=== PATIENT | female | born 1985 | race Caucasian/White ===

== ENCOUNTER → 2017-08-08 | Outpatient (CLI) | payer MEDICAID ==
--- NOTE | 2017-08-08 17:00 | US ---
EXAMINATION TYPE: US thyroid st tissue head/neck DATE OF EXAM: 08/08/2017 COMPARISON: NONE CLINICAL HISTORY: E05.90 hyperthyroidism. hair loss, abnormal labs, fast heart rate GLAND SIZE: Right Lobe: 6.0 x 2.7 x 2.5 cm Overall Parenchyma: heterogenous Left Lobe: 5.3 x 1.9 x 2.2 cm Overall Parenchyma: heterogeneous Isthmus Thickness: 0.4 cm NODULES RIGHT: # of nodules measured on right: 0 LEFT: # of nodules measured on left: 0 ISTHMUS: # of nodules measured in the isthmus: 0 Bilateral neck scanned, no evidence of lymphadenopathy. Heterogeneous gland bilaterally with no definite nodule seen IMPRESSION: No suspicious acute changes
== END | disposition home or self-care (01) ==
LOC: RADUSWWP 15:25
PROVIDERS: ATTEND Obstetrics & Gynecology
DX: E05.90 Thyrotoxicosis, unspecified without thyrotoxic crisis or storm (principal)
CPT/HCPCS: 76536

== ENCOUNTER → 2017-08-17 | Outpatient (CLI) | payer MEDICAID ==
[2017-08-17 09:27] LABS: CH 22.8; CHCM 30.9; HCT 39.5 % (34.0-46.0); HDW 2.74; HGB 12.4 gm/dL (11.4-16.0); Hypochromasia Moderate; MCH 23.3 pg (25.0-35.0); MCHC 31.4 g/dL (31.0-37.0); MCV 74.1 fL (80.0-100.0); Mean Platelet Volume 7.5; RBC 5.33 m/uL (3.80-5.40); RDW 13.4 % (11.5-15.5); WBC 6.2 k/uL (3.8-10.6)
[2017-08-17 10:05] LABS: ALT 42 U/L (9-52); AST 18 U/L (14-36); Alkaline Phosphatase 40 U/L (38-126); Anion Gap 8 mmol/L; Blood Urea Nitrogen 13 mg/dL (7-17); Calcium 9.7 mg/dL (8.4-10.2); Carbon Dioxide 25 mmol/L (22-30); Chloride 107 mmol/L (98-107); Glucose 104 mg/dL (74-99); Non-African American GFR(MDRD) >60 (>60 ml/min/1.73 sqM); Potassium 5.3 mmol/L (3.5-5.1); Sodium 140 mmol/L (137-145); Total Bilirubin 1.2 mg/dL (0.2-1.3); Total Protein 6.2 g/dL (6.3-8.2)
[2017-08-27 07:27] LABS: Mis test requested (Blood) Thyrotropin Recp Ab
== END | disposition home or self-care (01) ==
LOC: LABWHC1 08:32
PROVIDERS: ATTEND Internal Medicine
DX: E05.90 Thyrotoxicosis, unspecified without thyrotoxic crisis or storm (principal)
CPT/HCPCS: 36415; 80053; 83519; 84445; 84481; 85027; 86376

== ENCOUNTER → 2017-10-12 | Outpatient (CLI) | payer MEDICAID ==
[2017-10-12 09:24] LABS: HCT 41.2 % (34.0-46.0); HGB 12.6 gm/dL (11.4-16.0); Hypochromasia Marked; MCH 21.9 pg (25.0-35.0); MCHC 30.6 g/dL (31.0-37.0); MCV 71.7 fL (80.0-100.0); Mean Platelet Volume 6.6; Microcytosis Slight; Platelet Count 323 k/uL (150-450); RBC 5.75 m/uL (3.80-5.40); WBC 5.5 k/uL (3.8-10.6)
[2017-10-12 10:08] LABS: ALT 35 U/L (9-52); AST 22 U/L (14-36); Albumin 4.1 g/dL (3.5-5.0); Alkaline Phosphatase 57 U/L (38-126); Anion Gap 11 mmol/L; Blood Urea Nitrogen 13 mg/dL (7-17); Calcium 9.7 mg/dL (8.4-10.2); Carbon Dioxide 27 mmol/L (22-30); Chloride 104 mmol/L (98-107); Glucose 88 mg/dL (74-99); Potassium 4.3 mmol/L (3.5-5.1); Sodium 142 mmol/L (137-145); Total Protein 6.8 g/dL (6.3-8.2)
[2017-10-12 10:22] LABS: T4, Free (Free Thyroxine) 3.19 ng/dL (0.78-2.19)
== END | disposition home or self-care (01) ==
LOC: LABWHC1 08:37
PROVIDERS: ATTEND Internal Medicine
DX: E05.90 Thyrotoxicosis, unspecified without thyrotoxic crisis or storm (principal)
CPT/HCPCS: 36415; 80053; 84439; 84443; 84481; 85027

== ENCOUNTER → 2020-05-20 | Outpatient (CLI) | payer OTHER ==
--- NOTE | 2020-05-20 09:32 | US ---
EXAMINATION TYPE: US abdomen complete DATE OF EXAM: 05/20/2020 COMPARISON: NONE CLINICAL HISTORY: 35-year-old female E05.90 Thyrotoxicosis, K21.9 GERD, N92.0 Excessive. Intermittent GERD and nausea x 2 years, gotten worse recently, occasional abdomen pain TECHNIQUE: Multiple sonographic images of the abdomen are obtained. FINDINGS: EXAM MEASUREMENTS: Liver Length: 19.1 cm Gallbladder Wall: 0.2 cm CBD: 0.3 cm Spleen: 11.4 cm Right Kidney: 10.9 x 4.9 x 4.7 cm Left Kidney: 10.2 x 5.7 x 4.5 cm Pancreas: wnl Liver: Mildly enlarged. Normal homogeneous appearance without focal lesion. Gallbladder: wnl Evidence for sonographic Vazquez's sign: no CBD: visualized portions wnl, limited by overlying bowel gas Spleen: wnl Right Kidney: No hydronephrosis. Left Kidney: No hydronephrosis. Visualized portions wnl, upper and lower pole limited by overlying b owel gas Upper IVC: wnl Abd Aorta: wnl IMPRESSION: 1. Mild hepatomegaly at 19.1 cm. Overall normal homogeneous ultrasound appearance of the parenchyma. 2. No gallstones or biliary ductal dilatation.
--- NOTE | 2020-05-20 09:57 | US ---
EXAMINATION TYPE: US thyroid st tissue head/neck DATE OF EXAM: 05/20/2020 COMPARISON: 08/08/2017 CLINICAL HISTORY: 35-year-old female thyrotoxicosis. History of Graves Disease, enlarged thyroid TECHNIQUE: Multiple sonographic images of the thyroid gland are obtained. FINDINGS: GLAND SIZE: Right Lobe: 6.0 x 2.0 x 2.9 cm Overall Parenchyma: heterogenous Left Lobe: 5.6 x 2.1 x 2.3 cm Overall Parenchyma: heterogeneous Isthmus Thickness: 0.5 cm NODULES RIGHT: # of nodules measured on right: 1 1. 0.8 X 0.5 x 0.7 cm hypoechoic solid nodule at the lower pole with well-defined margins. This nod ule is wider than tall and shows intranodular vascularity. Prior size: no previous LEFT: # of nodules measured on left: 0 ISTHMUS: # of nodules measured in the isthmus: 0 Bilateral neck scanned, no evidence of lymphadenopathy. IMPRESSION: 1. Redemonstrated thyromegaly with heterogeneous glandular parenchyma. Possible goiter or diffuse thy roiditis. 2. An 8mm solid nodule at the right lower pole. Given that this is new, follow-up is recommended.
== END | disposition home or self-care (01) ==
LOC: RADUSWWP 06:59
PROVIDERS: ATTEND Physician Assistant Medical
DX: E01.0 Iodine-deficiency related diffuse (endemic) goiter (principal); R16.0 Hepatomegaly, not elsewhere classified
CPT/HCPCS: 76536; 76700

== ENCOUNTER → 2020-08-20 | Outpatient (CLI) | payer OTHER ==
--- NOTE | 2020-08-20 08:08 | US ---
EXAMINATION TYPE: US thyroid st tissue head/neck DATE OF EXAM: 08/20/2020 COMPARISON: Thyroid ultrasound May 20, 2020 CLINICAL HISTORY: E04.1 THYROID NODULE. Thyroid nodule GLAND SIZE: Right Lobe: 5.6 x 2.3 x 2.5 cm Overall Parenchyma: homogenous Left Lobe: 5.2 x 2.2 x 2.2 cm Overall Parenchyma: homogeneous Isthmus Thickness: .5 cm NODULES RIGHT: # of nodules measured on right: Unable to reproduce nodule seen on previous exam. LEFT: # of nodules measured on left: 0 ISTHMUS: # of nodules measured in the isthmus: 0 Bilateral neck scanned, no evidence of lymphadenopathy. Homogeneous slightly enlarged thyroid gland without discrete nodule identified on current study. IMPRESSION: As above. No greater than 1 cm nodules.
== END | disposition home or self-care (01) ==
LOC: RADUSWWP 07:31
PROVIDERS: ATTEND Family Medicine
DX: E04.2 Nontoxic multinodular goiter (principal)
CPT/HCPCS: 76536

== ENCOUNTER 2020-10-01 09:58 | Day surgery (SDC) | payer OTHER ==
[2020-09-28 13:50] VITALS: BMI 29.2
[~2020-10-01 09:58] MED LIST: LACTATED RINGERS 1,000 ML IV SCH
[2020-10-01 10:25] VITALS: TEMP 97.4
[2020-10-01] MEDS ORDERED: LIDOCAINE 1% (10MG/ML) FOR IV START INTRADERMA ONE (10:43)
[2020-10-01] MEDS ORDERED: PROPOFOL 10 MG/ML 20 ML VIAL IV ONE (10:57)
[2020-10-01] MEDS ORDERED: LIDOCAINE 1% INJ 10MG/ML (20 ML MDV) ONE (10:57)
--- NOTE | 2020-10-01 11:19 | P.PCN ---
Date of Procedure: 10/01/20 Procedure(s) Performed: BRIEF HISTORY: Patient is a 35-year-old, pleasant, female scheduled for an upper endoscopy as a part of evaluation of long-standing history of GERD for the last 2-3 years duration. She tried various PPIs no help. Lately has been taking Tums as needed. She is scheduled for an upper endoscopy were complicated reflux. PROCEDURE PERFORMED: Esophagogastroduodenoscopy with biopsy. PREOPERATIVE DIAGNOSIS: Chronic heartburn symptoms of 2 years duration. IV sedation per anesthesia. PROCEDURE: After informed consent was obtained, the patient was brought into the endoscopy unit. IV sedation was administered by Anesthesia under continuous monitoring. Initially the Olympus GIF-140 video endoscope was inserted into the mouth. Esophagus intubated without any difficulty. It was gradually advanced into the stomach and duodenum and carefully examined. The bulb and the second part of the duodenum appeared normal. The scope at this time was withdrawn to the stomach, adequately insufflated with air, and upon careful examination, mucosa of the antrum, and mild gastritis and biopsies were done from this area. The body, cardia and the fundus appeared normal. The scope was then withdrawn into the esophagus. The GE junction was located at 39 cm from the incisors. The esophagus appeared normal. There were no erosions or ulcerations seen, biopsies were done from the distal esophagus and the patient tolerated the procedure well. IMPRESSION: 1. Mild antral gastritis. 2. And well-appearing esophagus with no evidence of esophagitis or Delgado's esophagus. RECOMMENDATIONS: The findings of this examination were discussed with the patient as well as a family. She was advised to follow with the biopsy results. She will be given a trial of Pepcid 20 mg at bedtime and was briefly educated about antireflux measures..
[2020-10-01 12:06] VITALS: BP 106/70; PULSE 76; RESP 20
== END 2020-10-01 11:52 | disposition home or self-care (01) ==
LOC: ORWHC2ENDO 09:58
PROVIDERS: ATTEND Internal Medicine Gastroenterology
DX: K29.50 Unspecified chronic gastritis without bleeding (principal); K21.9 Gastro-esophageal reflux disease without esophagitis
CPT/HCPCS: 81025; 88305; 43239; J2001; J2704

== ENCOUNTER → 2021-07-29 | Outpatient (CLI) | payer MEDICAID | END | disposition home or self-care (01) | LOC: LABMAIN 09:51 | PROVIDERS: ATTEND Physician Assistant | DX: Z20.822 Contact with and (suspected) exposure to COVID-19 (principal) | CPT/HCPCS: 87635 ==

== ENCOUNTER 2021-07-30 10:21 | Emergency (ER) | payer MEDICAID ==
[2021-07-30] MEDS ORDERED: CASIRIVIMAB/IMDEVIMAB (EUA) 1,200 MG in SODIUM CHLORIDE 0.9% 100 ML IVPB ONE (10:45)
--- NOTE | 2021-07-30 10:56 | ED ---
General Adult HPI - General Chief complaint: Upper Respiratory Infection Stated complaint: Covid+/antibodies Time Seen by Provider: 07/30/21 10:30 Source: patient, RN notes reviewed Mode of arrival: ambulatory - History of Present Illness Initial comments: This a 36-year-old female presents emergency Department with chief complaint of COVID-19. Patient states she symptoms started 2 days ago tested positive yesterday. Patient states she is here for monoclonal antibodies. She went to fevers chills bodies cough congestion. Denies any chest pain shortness of breath no leg pain no leg swelling no GI symptoms. - Related Data Home Medications Medication Instructions Recorded Confirmed Multivitamins, Thera [Multivitamin 1 tab PO DAILY 09/28/20 09/28/20 (formulary)] Allergies Allergy/AdvReac Type Severity Reaction Status Date / Time No Known Allergies Allergy Verified 07/30/21 10:28 Review of Systems ROS Statement: Those systems with pertinent positive or pertinent negative responses have been documented in the HPI. ROS Other: All systems not noted in ROS Statement are negative. Past Medical History Past Medical History: GERD/Reflux, Thyroid Disorder Additional Past Medical History / Comment(s): excessive heartburn, no current Rx for thyroid History of Any Multi-Drug Resistant Organisms: None Reported Past Surgical History: Section, Tonsillectomy Additional Past Surgical History / Comment(s): superficial cranial cyst removed, C/S x 3 Past Anesthesia/Blood Transfusion Reactions: No Reported Reaction Past Psychological History: No Psychological Hx Reported Smoking Status: Never smoker Past Alcohol Use History: None Reported Past Drug Use History: None Reported - Past Family History Father Family Medical History: No Reported History Mother Family Medical History: No Reported History General Exam General appearance: alert, in no apparent distress Head exam: Present: atraumatic, normocephalic, normal inspection Eye exam: Present: normal appearance, PERRL, EOMI. Absent: scleral icterus, conjunctival injection, periorbital swelling ENT exam: Present: normal exam, normal oropharynx, mucous membranes moist Neck exam: Present: normal inspection, full ROM. Absent: tenderness, meningismus, lymphadenopathy Respiratory exam: Present: normal lung sounds bilaterally. Absent: respiratory distress, wheezes, rales, rhonchi, stridor Cardiovascular Exam: Present: regular rate, normal rhythm, normal heart sounds. Absent: systolic murmur, diastolic murmur, rubs, gallop, clicks Course Vital Signs 07/30/21 10:22 Temperature 97.9 F Pulse Rate 79 Respiratory 18 Rate Blood Pressure 108/66 O2 Sat by Pulse 100 Oximetry Medical Decision Making - Medical Decision Making Patient is well-appearing, vitals are stable patient did receive monoclonal he otherwise be discharged in stable condition. Disposition Clinical Impression: COVID-19 Disposition: HOME SELF-CARE Condition: Stable Instructions (If sedation given, give patient instructions): Coronavirus Disease 2019 (COVID-19) Additional Instructions: Please return to the Emergency Department if symptoms worsen or any other concerns. Is patient prescribed a controlled substance at d/c from ED?: No Referrals: Nuria Busch MD [Primary Care Provider] - 1-2 days Time of Disposition: 10:55
[2021-07-30] MEDS ORDERED: SODIUM CHLORIDE 0.9% 50 ML IVPB ONE (11:15)
[2021-07-30 12:31] VITALS: BP 103/69; PULSE 68; RESP 16; TEMP 98.1
== END 2021-07-30 13:09 | disposition home or self-care (01) ==
LOC: EC 10:21
DX: U07.1 COVID-19 (principal)
CPT/HCPCS: 99283; 96365; Q0243

== ENCOUNTER → 2021-08-05 | Outpatient (CLI) | payer MEDICAID ==
[2021-08-05 23:25] LABS: Basophils # (A) 0.03 X 10*3/uL (0.00-0.10); Basophils % (A) 0.4 %; Eosinophils # (A) 0.15 X 10*3/uL (0.04-0.35); Lymphocytes # (A) 1.47 X 10*3/uL (0.90-5.00); Lymphocytes % (A) 19.1 %; MCH 24.1 pg (27.0-32.0); MCV 77.9 fL (80.0-97.0); Mean Platelet Volume 9.6 fL (9.5-12.2); Monocytes # (A) 0.35 X 10*3/uL (0.20-1.00); Monocytes % (A) 4.6 %; Neutrophils # (A) 5.66 X 10*3/uL (1.80-7.70); Neutrophils % (A) 73.6 %; Platelet Count 396 X 10*3/uL (140-440); RBC 5.39 X 10*6/uL (4.10-5.20); WBC 7.68 X 10*3/uL (4.50-10.00)
[2021-08-06 02:22] LABS: ALT 8 U/L (8-44); AST 15 U/L (13-35); African American GFR (CKD) 128.3 (60.0-200.0); Albumin 4.6 g/dL (3.8-4.9); Alkaline Phosphatase 58 U/L (41-126); BUN/Creat Ratio 16.71 Ratio (12.00-20.00); Blood Urea Nitrogen 11.7 mg/dL (9.0-27.0); Calcium 9.5 mg/dL (8.7-10.3); Carbon Dioxide 26.6 mmol/L (21.6-31.8); Chloride 103 mmol/L (96-109); Chol/HDL Ratio 4.11 Ratio; Globulin 2.3 g/dL (1.6-3.3); Glucose 122 mg/dL (70-110); LDL Cholesterol,Calculated 89.8 mg/dL (0.0-131.0); Non-African American GFR(CKD) 110.7 (60.0-200.0); Potassium 4.7 mmol/L (3.5-5.5); Sodium 142 mmol/L (135-145); Total Protein 6.9 g/dL (6.2-8.2)
[2021-08-06 02:30] LABS: Immunoglobulin E 52.6 IU/mL (0.00-114.00)
== END | disposition home or self-care (01) ==
LOC: LABWHC1 15:38
PROVIDERS: ATTEND Physician Assistant Medical
DX: Z00.00 Encounter for general adult medical examination without abnormal findings (principal); Z13.220 Encounter for screening for lipoid disorders; R10.13 Epigastric pain; K21.9 Gastro-esophageal reflux disease without esophagitis; J30.9 Allergic rhinitis, unspecified; E05.90 Thyrotoxicosis, unspecified without thyrotoxic crisis or storm
CPT/HCPCS: 36415; 80053; 80061; 82785; 84439; 84443; 85025; 86003

== ENCOUNTER → 2021-12-15 | Outpatient (CLI) | payer MEDICAID ==
--- NOTE | 2021-12-15 12:31 | US ---
EXAMINATION TYPE: US thyroid st tissue head/neck DATE OF EXAM: 12/15/2021 COMPARISON: 08/20/2020 CLINICAL HISTORY: 36-year-old female E04.1 THYROID NODULE. Thyrotoxicosis. TECHNIQUE: Multiple sonographic images of the thyroid gland are obtained. FINDINGS: GLAND SIZE: Right Lobe: 6.5 x 2.7 x 1.9 cm Overall Parenchyma: heterogenous Left Lobe: 5.7 x 2.5 x 1.8 cm Overall Parenchyma: heterogeneous Isthmus Thickness: 0.44 cm NODULES RIGHT: # of nodules measured on right: 1 1. 1.1 X 0.8 x 0.6 cm, lower solid or almost completely solid, hypoechoic TR 4 nodule, which is wid er than tall, with smooth margins, without echogenic foci. Prior size: 0.8 x 0.7 x 0.5 cm LEFT: # of nodules measured on left: 0 ISTHMUS: # of nodules measured in the isthmus: 0 Bilateral neck scanned, no evidence of lymphadenopathy. IMPRESSION: 1. Mild thyromegaly, possible goiter. 2. Solitary 1.1 x 0.8 cm solid, TR4 nodule at the right lower pole. This shows slight increase in siz e from 8 x 7 mm, previously. Continue to follow and FNA if it reaches 1.5 cm.
== END | disposition home or self-care (01) ==
LOC: RADUSWWP 08:18
PROVIDERS: ATTEND Family Medicine
DX: E01.0 Iodine-deficiency related diffuse (endemic) goiter (principal)
CPT/HCPCS: 76536

== ENCOUNTER → 2022-12-26 | Outpatient (CLI) | payer MEDICAID ==
--- NOTE | 2022-12-26 09:11 | MM ---
Reason for Exam: Clinical finding. Patient History: Last menstrual period: 12/19/2022 Risk Values: Mai 5 year model risk: 0.3%. NCI Lifetime model risk: 6.8%. Tissue Density: The breast tissue is almost entirely fat. Findings: Analyzed By CAD. No new suspicious masses, calcifications or distortions. Nothing to correlate with patient's palpable abnormality. Overall Assessment: Incomplete: need additional imaging evaluation, BI-RAD 0 Management: Diagnostic Breast Ultrasound of the left breast. A clinical breast exam by your physician is recommended on an annual basis and results should be correlated with mammographic findings. This exam should not preclude additional follow-up of suspicious palpable abnormalities. Results were given to the patient verbally at the time of exam. Electronically signed and approved by: Jaime Yung DO
--- NOTE | 2022-12-26 09:37 | USB ---
Reason for Exam: Clinical finding. Risk Values: Mai 5 year model risk: 0.3%. NCI Lifetime model risk: 6.8%. Technique: Method: Targeted. Patient Position: Supine. Findings: The lower inner quadrant of the left breast and the retroareolar of the left breast were scanned. Imaged: Ultrasound imaging of: All 4 quadrants, the retroareolar region and axilla. No evidence for organizing fluid collection or mass.Imaged: Ultrasound imaging of: Area of concern, retroareolar region and axilla. No evidence for organizing fluid collection or mass. Overall Assessment: Negative, BI-RAD 1 Management: Screening Mammogram of both breasts at age 39. A clinical breast exam by your physician is recommended on an annual basis and results should be correlated with mammographic findings. This exam should not preclude additional follow-up of suspicious palpable abnormalities. Results were given to the patient verbally at the time of exam. Electronically signed and approved by: Jaime Yung DO
== END | disposition home or self-care (01) ==
LOC: RADMAMWWP 08:43
PROVIDERS: ATTEND Obstetrics & Gynecology
DX: R92.8 Other abnormal and inconclusive findings on diagnostic imaging of breast (principal); N64.4 Mastodynia; N63.20 Unspecified lump in the left breast, unspecified quadrant
CPT/HCPCS: 77062; 77066